=== PATIENT | female | born 1935 | race Hispanic/Latino ===

== ENCOUNTER 2020-05-13 15:27 | Emergency (ER) | payer MEDICARE ==
[~2020-05-13] VITALS: Ht 157.5 cm; Wt 81.6 kg
[2020-05-13 16:39] LABS: BASOPHILS % 0.1 % (0.0-1.0); EOSINOPHILS % 0.2 % (0.0-6.0); HEMATOCRIT 38.6 % (34.2-44.1); HEMOGLOBIN 12.8 g/dL (12.0-16.0); LYMPHOCYTES # (AUTO) 0.5 (1.0-3.2); MEAN CORPUSCULAR HEMOGLOBIN 30.1 pg (28-32); MEAN CORPUSCULAR HGB CONC 33.2 g/dL (31-35); MEAN CORPUSCULAR VOLUME 90.8 fL (81-99); MONOCYTES # (AUTO) 0.8 (0.2-0.8); MONOCYTES % 4.6 % (4.4-11.3); NEUTROPHILS # (AUTO) 15.4 (2.1-6.9); NEUTROPHILS % 90.8 % (38.7-80.0); PLATELET COUNT 310 x10e3/uL (140-360); RED BLOOD COUNT 4.25 x10e6/uL (3.6-5.1); RED CELL DISTRIBUTION WIDTH 12.5 % (11.7-14.4)
[2020-05-13] MEDS ORDERED: DEXAMETHASONE SOD PHOS INJ 4 MG/ML VIAL IV ONE (17:00)
[2020-05-13 17:03] LABS: ALBUMIN 3.1 g/dL (3.5-5.0); ALBUMIN/GLOBULIN RATIO 0.9 (0.8-2.0); ANION GAP 19.7 mmol/L (8-16); CALCIUM 8.7 mg/dL (8.4-10.2); CREATININE, SERUM 1.15 mg/dL (0.57-1.11); POTASSIUM 4.7 mmol/L (3.5-5.1)
[2020-05-13] MEDS ORDERED: ATORVASTATIN CA10 MG (18:15)
[2020-05-13] MEDS ORDERED: METFORMIN HCL500 MG (18:15)
[2020-05-13] MEDS ORDERED: LISINOPRIL-HCT1 EACH (18:15)
[2020-05-13] MEDS ORDERED: PREDNISONE50 MG (18:15)
[2020-05-13] MEDS ORDERED: CARVEDILOL6.25 MG (18:15)
[2020-05-13] MEDS ORDERED: SERTRALINE HCL50 MG (18:15)
[2020-05-13] MEDS ORDERED: GLIPIZIDE5 MG (18:15)
[2020-05-13] MEDS ORDERED: OMEPRAZOLE20 MG (18:15)
[2020-05-13] MEDS ORDERED: METFORMIN HCL1000 MG (18:15)
[2020-05-13 18:54] LABS: LYMPHOCYTES % (MANUAL) 4 % (19-48); MONOCYTES % (MANUAL) 6 % (3.4-9.0); NEUTROPHILS % (MANUAL) 90 % (40-74)
[2020-05-13 18:55] LABS: HYPOCHROMASIA SLIG; PLATELET ESTIMATE ADEQUATE; POLYCHROMASIA FEW; RBC MORPHOLOGY COMMENT NORMAL
== END 2020-05-14 | disposition other institution (70) ==
LOC: EDBD 15:27 → ER 16:01
DX: U07.1 COVID-19 (principal); R09.02 Hypoxemia; R05 Cough; E11.65 Type 2 diabetes mellitus with hyperglycemia; I10 Essential (primary) hypertension; E78.5 Hyperlipidemia, unspecified
CPT/HCPCS: 36415; 71045; 80053; 84484; 85025; 93005; 99284; J1100